=== PATIENT | female | born 1990 | race Caucasian/White ===

== ENCOUNTER 2019-01-21 09:58 | Emergency (ER) | payer OTHER ==
[2019-01-21] MEDS ORDERED: Sodium Chloride 0.9% 1000 ML 1,000 ML IV STA (10:24)
[2019-01-21] MEDS ORDERED: Zofran 4 MG/2 ML VIAL IV ONE (10:24)
--- NOTE | 2019-01-21 10:31 | ERPHSYRPT ---
- History of Present Illness Time Seen by Provider: 01/21/19 10:20 Historian: patient, family (mom) Exam Limitations: no limitations Physician History: Has been referred at least twice for upper GI studies which have not taken place for scheduling reasons. Today had another episode of severe nausea; smoked MJ which in past has helped. Did not this time. Allergies/Adverse Reactions: No Known Drug Allergies Allergy (Verified 01/21/19 10:36) Home Medications: Buprenorphine HCl/Naloxone HCl [Suboxone 8 mg-2 mg Tablet Sl] 1 each SL DAILY [History] Venlafaxine HCl 37.5 mg [Effexor 37.5 mg] 37.5 mg PO DAILY 01/21/19 [ History] Hx Tetanus, Diphtheria Vaccination/Date Given: Yes (up to date) Hx Influenza Vaccination/Date Given: No Hx Pneumococcal Vaccination/Date Given: No - Review of Systems Constitutional: Malaise Respiratory: No Symptoms Cardiac: No Symptoms Abdominal/Gastrointestinal: Nausea, Vomiting, No Diarrhea Genitourinary Symptoms: No Symptoms All Other Systems: Reviewed and Negative - Past Medical History Pertinent Past Medical History: No Neurological History: No Pertinent History ENT History: No Pertinent History Cardiac History: No Pertinent History Respiratory History: No Pertinent History Endocrine Medical History: No Pertinent History Musculoskeletal History: No Pertinent History GI Medical History: No Pertinent History Psycho-Social History: Anxiety, Panic Disorder, Other Female Reproductive Disorders: Other - Past Surgical History Past Surgical History: Yes Gastrointestinal: Cholecystectomy Other Surgical History: IMPLANON-LEFT BICEP - Social History Smoking Status: Light tobacco smoker How long have you smoked: YRS Exposure to second hand smoke: Yes Drug Use: none Patient Lives Alone: No - Nursing Vital Signs Nursing Vital Signs: Initial Vital Signs Temperature 98.1 F 01/21/19 10:13 Pulse Rate 70 01/21/19 10:13 Respiratory Rate 21 01/21/19 10:13 Blood Pressure 140/97 01/21/19 10:13 O2 Sat by Pulse Oximetry 100 01/21/19 10:13 Pain Scale Pain Intensity 0 - Physical Exam General Appearance: moderate distress, alert, anxiety (sewcondry to discomfort and acute episode today) Eye Exam: PERRL/EOMI Ears, Nose, Throat Exam: normal ENT inspection, pharynx normal, moist mucous membranes Neck Exam: normal inspection, supple Respiratory Exam: normal breath sounds, airway intact Cardiovascular Exam: regular rate/rhythm, normal heart sounds, normal peripheral pulses, No edema Gastrointestinal/Abdomen Exam: soft, normal bowel sounds, tenderness (epigastric ) Skin Exam: normal color, warm, dry O2 Delivery: Room Air - Course Nursing assessment & vital signs reviewed: Yes Ordered Tests: Active Orders 24 hr Category Date Time Status ABDOMEN AND PELVIS W/0 CONTRAS [CT] Stat Exams 01/21/19 11:24 Taken AMYLASE Stat Lab 01/21/19 10:36 Completed CBC W DIFF Stat Lab 01/21/19 10:36 Completed CMP Stat Lab 01/21/19 10:36 Completed HCG QUALITATIVE,SERUM Stat Lab 01/21/19 10:36 Completed LIPASE Stat Lab 01/21/19 10:36 Completed Medication Summary Discontinued Medications Generic Name Dose Route Start Last Admin Trade Name Freq PRN Reason Stop Dose Admin Sodium Chloride 1,000 mls @ 999 mls/hr 01/21/19 10:24 01/21/19 12:12 Sodium Chloride 0.9% 1000 Ml IV 01/21/19 11:24 Infused .Q1H1M STA Infusion Sodium Chloride Confirm 01/21/19 10:51 Sodium Chloride 0.9% 1000 Ml Administered 01/21/19 10:52 Dose 1,000 mls @ ud .ROUTE .STK-MED ONE Ondansetron HCl 4 mg 01/21/19 10:24 01/21/19 10:56 Zofran 4 Mg/2 Ml Vial IV 01/21/19 10:25 4 mg STAT ONE Administration Ondansetron HCl Confirm 01/21/19 10:51 Zofran 4 Mg/2 Ml Vial Administered 01/21/19 10:52 Dose 4 mg .ROUTE .STK-MED ONE Ondansetron HCl 4 mg 01/21/19 12:11 01/21/19 12:18 Zofran Odt 4 Mg PO 01/21/19 12:12 4 mg STAT ONE Administration Ondansetron HCl Confirm 01/21/19 12:17 Zofran Odt 4 Mg Administered 01/21/19 12:18 Dose 4 mg .ROUTE .STK-MED ONE Lab/Rad Data: Laboratory Result Diagrams 01/21/19 10:36 01/21/19 10:36 Laboratory Results 01/21/19 01/21/1919 Range/Units 10:36 10:36 10:36 WBC 5.9 (4.0-10.5) K/mm3 RBC 4.08 L (4.1-5.4) M/mm3 Hgb 12.1 (12.0-16.0) gm/dl Hct 36.2 (35-47) % MCV 88.7 (78-100) fl MCH 29.6 (26-32) pg MCHC 33.4 (32-36) g/dl RDW 13.6 (11.5-14.0) % Plt Count 200 (150-450) K/mm3 MPV 11.2 H (6-9.5) fl Gran % 75.8 H (36.0-66.0) % Eos # (Auto) 0.06 (0-0.5) Absolute Lymphs (auto) 1.09 (1.0-4.6) Absolute Monos (auto) 0.27 (0.0-1.3) Lymphocytes % 18.4 L (24.0-44.0) % Monocytes % 4.6 (0.0-12.0) % Eosinophils % 1.0 (0.00-5.0) % Basophils % 0.2 (0.0-0.4) % Absolute Granulocytes 4.50 (1.4-6.9) Basophils # 0.01 (0-0.4) Sodium 139 (137-145) mmol/L Potassium 4.2 (3.5-5.1) mmol/L Chloride 108 H (98-107) mmol/L Carbon Dioxide 20 L (22-30) mmol/L Anion Gap 15.4 H (5-15) MEQ/L BUN 13 (7-17) mg/dL Creatinine 0.59 (0.52-1.04) mg/dL Estimated GFR > 60.0 ML/MIN Glucose 154 H (74-106) mg/dL Calcium 9.2 (8.4-10.2) mg/dL Total Bilirubin 0.40 (0.2-1.3) mg/dL AST 401 H (14-36) U/L ALT 312 H (0-35) U/L Alkaline Phosphatase 85 (38-126) U/L Serum Total Protein 8.4 H (6.3-8.2) g/dL Albumin 4.6 (3.5-5.0) g/dL Amylase 134 H (30-110) U/L Lipase 173 (23-300) U/L Serum , Qual NEGATIVE (Negative) - Progress Progress: improved Progress Note: 01/21/19 16:02 Patient responded to zofran; WBC normal; CT suggestive of possible early appendicitis - not supported by clinical picture. Discussed with Surgeon - will see her on Wednesday. 01/21/19 16:04 [address]iscuss[address] with DrJagdeep: Miguelito (Will see her on Wednesday) - Departure Departure Disposition: Home Clinical Impression: Gastritis Qualifiers: Gastritis type: unspecified gastritis Chronicity: unspecified Gastritis bleeding: without bleeding Qualified Code(s): K29.70 - Gastritis, unspecified, without bleeding Condition: Stable Critical Care Time: No Referrals: WILBERTO SUAREZ MD [Primary Care Provider] - Additional Instructions: Follow up with Dr. Smith/Surgeon on Wednesday. Resume normal activities. Return to ER if fever 101 or above or doubled over in pain meanwhile. Prescriptions: Ondansetron ODT 4 MG [Zofran Odt 4 mg] 4 mg PO Q6H PRN PRN #10 tab.rapdis PRN Reason: Nausea/Vomiting
[2019-01-21 10:43] LABS: BASOPHIL % 0.2 % (0.0-0.4); Basophil (Absolute #) 0.01 (0-0.4); Eosinophil (Absolute #) 0.06 (0-0.5); Granulocytes % 75.8 % (36.0-66.0); Hematocrit 36.2 % (35-47); Hemoglobin 12.1 gm/dl (12.0-16.0); Lymphocyte (Absolute #) 1.09 (1.0-4.6); Lymphocytes % 18.4 % (24.0-44.0); Mean Cell Volume 88.7 fl (78-100); Mean Corpuscular Hgb Concent. 33.4 g/dl (32-36); Mean Platelet Volume 11.2 fl (6-9.5); Monocyte (Absolute #) 0.27 (0.0-1.3); Monocytes % 4.6 % (0.0-12.0); Platelet Count 200 K/mm3 (150-450); Red Blood Count 4.08 M/mm3 (4.1-5.4); Red Cell Distribution Width 13.6 % (11.5-14.0); White Blood Count 5.9 K/mm3 (4.0-10.5)
[2019-01-21 10:46] LABS: Mean Corpuscular Hemoglobin 29.6 pg (26-32)
[2019-01-21 10:50] LABS: ALBUMIN 4.6 g/dL (3.5-5.0); ALKALINE PHOSPHATASE 85 U/L (38-126); AMYLASE 134 U/L (30-110); ANION GAP 15.4 MEQ/L (5-15); BLOOD UREA NITROGEN 13 mg/dL (7-17); CHLORIDE 108 mmol/L (98-107); Calcium 9.2 mg/dL (8.4-10.2); Carbon Dioxide 20 mmol/L (22-30); Creatinine 1 0.59 mg/dL (0.52-1.04); Glucose 154 mg/dL (74-106); LIPASE 173 U/L (23-300); Potassium 4.2 mmol/L (3.5-5.1); SGOT/AST 401 U/L (14-36); SGPT/ALT 312 U/L (0-35); SODIUM 139 mmol/L (137-145); Total Protein 8.4 g/dL (6.3-8.2)
[2019-01-21] MEDS ORDERED: Sodium Chloride 0.9% 1000 ML 1,000 ML ONE (10:51)
[2019-01-21] MEDS ORDERED: Zofran 4 MG/2 ML VIAL ONE (10:51)
[2019-01-21] MEDS ORDERED: ZOFRAN ODT 4 MG PO ONE (12:11)
[2019-01-21] MEDS ORDERED: ZOFRAN ODT 4 MG ONE (12:17)
[2019-01-21 12:53] VITALS: BP 118/77; PULSE 88; O2SAT 97
--- NOTE | 2019-01-21 19:20 | XRAY ---
Indication: Abdomen pain, nausea, and constipation. Multiple contiguous axial images obtained through the abdomen and pelvis without contrast as ordered. Comparison: None Lung bases are clear. Heart is not enlarged. Noncontrasted stomach and bowel loops are nonobstructed. Normal appendix with tiny appendicolith. Little to no colonic fecal debris. 5 mm right lobe hepatic cyst, 3.5 cm right ovary cyst, and previous cholecystectomy. No free fluid/air. Spleen is enlarged measuring 12.7 cm in greatest axial dimension. Remaining liver, pancreas, spleen, adrenal glands, kidneys, ureters, bladder, uterus, and aorta appear unremarkable for noncontrast exam. Osseous structures intact. Impression: 1. 3 cm right ovary cyst. Pelvic sonogram medial further information if clinically warranted. 2. Tiny hepatic cyst and splenomegaly. 3. Remaining CT abdomen/pelvis without contrast exam is negative. Comment: Preliminary interpretation was made by [facility]. No critical discrepancy. CTDI 21.85
== END 2019-01-21 12:53 | disposition home or self-care (01) ==
LOC: ED 09:58
DX: K29.70 Gastritis, unspecified, without bleeding (principal)
CPT/HCPCS: 36415; 74176; 80053; 81025; 82150; 83690; 85025; 96360; 96374; 99284; J2405; Q0162

== ENCOUNTER 2022-02-18 09:09 | Emergency (ER) | payer OTHER ==
--- NOTE | 2022-02-18 09:20 | ERPHSYRPT ---
- History of Present Illness Time Seen by Provider: 02/18/22 09:20 Historian: patient Exam Limitations: no limitations Physician History: This is a 31-year-old white female patient who is approximately 8 weeks and is on Suboxone and presents with nausea vomiting and diarrhea that began yesterday and increased today. Intermittently, over the last 8 weeks she has been having vomiting issues. Her primary care physician, Dr. Suarez, put her on Zofran. However, she has not been able to hold liquids or foods down. She also has not been able to hold the Zofran down. She started having some abdominal pain today but it is improved after the episodes of diarrhea. Patient denies chest pain and she denies shortness of breath. Patient has a history of anxiety and panic attacks. Patient has not had any vaginal bleeding or abnormal vaginal discharge. Timing/Duration: yesterday Abdominal Pain Onset Location: suprapubic Pain Radiation: no radiation (To moderate) Severity of Pain-Max: mild Severity of Pain-Current: none Modifying Factors: Improves With: vomiting Associated Symptoms: nausea, vomiting Previous symptoms: no prior history Allergies/Adverse Reactions: No Known Drug Allergies Allergy (Verified 02/18/22 09:33) Home Medications: Buprenorphine HCl/Naloxone HCl [Suboxone 8 mg-2 mg Tablet Sl] 2 each SL DAILY 01/21/19 [History] Venlafaxine HCl 37.5 mg [Effexor 37.5 mg] 37.5 mg PO DAILY 01/21/19 [History] Lemborexant [Dayvigo] 10 mg PO DAILY 02/18/22 [History] Linaclotide [Linzess] 145 mcg PO DAILY 02/18/22 [History] Naloxegol Oxalate [Movantik] 25 mg PO DAILY 02/18/22 [History] Hx Tetanus, Diphtheria Vaccination/Date Given: Yes (up to date) Hx Influenza Vaccination/Date Given: No Hx Pneumococcal Vaccination/Date Given: No Travel Risk - International Travel Have you traveled outside of the country in past 3 weeks: No - Coronavirus Screening Are you exhibiting any of the following symptoms?: No Close contact with a COVID-19 positive Pt in past 14-21 Days: No - Review of Systems Constitutional: No Symptoms Eyes: No Symptoms Ears, Nose, & Throat: No Symptoms Respiratory: No Symptoms Cardiac: No Symptoms Abdominal/Gastrointestinal: Abdominal Pain, Nausea, Vomiting, Diarrhea, No Constipation Genitourinary Symptoms: No Symptoms Musculoskeletal: No Symptoms Skin: No Symptoms Neurological: No Symptoms Psychological: No Symptoms Endocrine: No Symptoms Hematologic/Lymphatic: No Symptoms Immunological/Allergic: No Symptoms All Other Systems: Reviewed and Negative - Past Medical History Pertinent Past Medical History: No Neurological History: No Pertinent History ENT History: No Pertinent History Cardiac History: No Pertinent History Respiratory History: No Pertinent History Endocrine Medical History: No Pertinent History Musculoskeletal History: No Pertinent History GI Medical History: No Pertinent History Psycho-Social History: Anxiety, Panic Disorder, Other Female Reproductive Disorders: Other - Past Surgical History Past Surgical History: Yes Gastrointestinal: Cholecystectomy Other Surgical History: IMPLANON-LEFT BICEP - Social History Smoking Status: Light tobacco smoker How long have you smoked: YRS Exposure to second hand smoke: Yes Drug Use: none Patient Lives Alone: No - Nursing Vital Signs Nursing Vital Signs: Initial Vital Signs Temperature 96.9 F 02/18/22 09:17 Pulse Rate 64 02/18/22 09:17 Blood Pressure 120/68 02/18/22 09:17 O2 Sat by Pulse Oximetry 100 02/18/22 09:17 Pain Scale Pain Intensity 2 - Physical Exam General Appearance: no apparent distress, alert, anxiety Eye Exam: PERRL/EOMI, eyes nml inspection Ears, Nose, Throat Exam: normal ENT inspection, moist mucous membranes Neck Exam: normal inspection, non-tender, supple, full range of motion Respiratory Exam: normal breath sounds, lungs clear, airway intact, No chest tenderness, No respiratory distress Cardiovascular Exam: regular rate/rhythm, normal heart sounds, normal peripheral pulses Gastrointestinal/Abdomen Exam: soft, normal bowel sounds, No tenderness Pelvic Exam: not done Rectal Exam: not done Back Exam: normal inspection, normal range of motion, No CVA tenderness, No vertebral tenderness Extremity Exam: normal inspection, normal range of motion, pelvis stable Neurologic Exam: alert, oriented x 3, cooperative, marine electrician II-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 nml as tested, normal mood/affect, nml cerebellar function, nml station & gait, sensation nml Skin Exam: normal color, warm, dry Lymphatic Exam: No adenopathy SpO2 Interpretation: normal O2 Delivery: Room Air - Course Nursing assessment & vital signs reviewed: Yes Ordered Tests: Active Orders 24 hr Category Date Time Status IV Insertion STAT Care 02/18/22 09:37 Active AMYLASE Stat Lab 02/18/22 09:55 Received CBC W DIFF Stat Lab 02/18/22 09:55 Completed CMP Stat Lab 02/18/22 09:55 Received HCG, Quantitative (Inhouse) Stat Lab 02/18/22 09:55 Received LIPASE Stat Lab 02/18/22 09:55 Received Lactic Acid Stat Lab 02/18/22 09:55 Completed UA W/RFX CULTURE Stat Lab 02/18/22 09:55 Completed Medication Summary Generic Name Dose Route Start Last Admin Trade Name Freq PRN Reason Stop Dose Admin Sodium Chloride 500 mls @ 500 mls/hr 02/18/22 10:26 Sodium Chloride 0.9% 500 Ml IV 02/18/22 11:25 .Q1H ONE Discontinued Medications Generic Name Dose Route Start Last Admin Trade Name Freq PRN Reason Stop Dose Admin Sodium Chloride 1,000 mls @ 999 mls/hr 02/18/22 09:37 02/18/22 09:41 Sodium Chloride 0.9% 1000 Ml IV 02/18/22 10:37 999 mls/hr .Q1H1M STA Administration Sodium Chloride Confirm 02/18/22 09:41 Sodium Chloride 0.9% 1000 Ml Administered 02/18/22 09:42 Dose 1,000 mls @ ud .ROUTE .STK-MED ONE Ondansetron HCl 4 mg 02/18/22 09:37 02/18/22 09:42 Ondansetron Hcl 4 Mg/2 Ml Vial IV 02/18/22 09:38 4 mg STAT ONE Administration Ondansetron HCl Confirm 02/18/22 09:41 Ondansetron Hcl 4 Mg/2 Ml Vial Administered 02/18/22 09:42 Dose 4 mg .ROUTE .STK-MED ONE Lab/Rad Data: Laboratory Result Diagrams 02/18/22 09:55 Laboratory Results 02/18/22 02/18/22 02/18/22 Range/Units 09:55 09:55 09:55 WBC 7.9 (4.0-10.5) x10^3/uL RBC 4.00 L (4.1-5.4) x10^6/uL Hgb 12.2 (12.0-16.0) g/dL Hct 36.3 (35-47) % MCV 90.8 (78-100) fL MCH 30.5 (26-32) pg MCHC 33.6 (32-36) g/dL RDW 11.7 (11.5-14.0) % Plt Count 166 (150-450) x10^3/uL MPV 11.0 (7.5-11.0) fL Gran % 84.4 H (36.0-66.0) % Immature Gran % (Auto) 0.3 (0.00-0.4) % Nucleat RBC Rel Count 0.0 (0.00-0.1) % Eos # (Auto) 0.05 (0-0.5) x10^3/uL Immature Gran # (Auto) 0.02 (0.00-0.03) x10^3u/L Absolute Lymphs (auto) 0.85 L (1.0-4.6) x10^3/uL Absolute Monos (auto) 0.31 (0.0-1.3) x10^3/uL Absolute Nucleated RBC 0.00 (0.00-0.01) x10^3u/L Lymphocytes % 10.7 L (24.0-44.0) % Monocytes % 3.9 (0.0-12.0) % Eosinophils % 0.6 (0.00-5.0) % Basophils % 0.1 (0.0-0.4) % Absolute Granulocytes 6.68 (1.4-6.9) x10^3/uL Basophils # 0.01 (0-0.4) x10^3/uL Lactic Acid 0.9 (0.4-2.0) Urinalys Dipstick Clnc MAIN LAB Urine Color YELLOW (YELLOW) Urine Appearance CLEAR (CLEAR) Urine pH 7.0 (5-6) Ur Specific [place] 1.020 (1.005-1.025) POC Urine Protein Conf NEGATIVE (Negative) Urine Ketones SMALL-15 (NEGATIVE) Urine Nitrite NEGATIVE (NEGATIVE) Urine Bilirubin NEGATIVE (NEGATIVE) Urine Urobilinogen 1 (0-1) mg/dL Urine Leukocytes NEGATIVE (NEGATIVE) Urine WBC (Auto) 0-2 (0-5) /HPF Urine RBC (Auto) 0-2 (0-2) /HPF U Epithel Cells (Auto) FEW (FEW) /HPF Urine Bacteria (Auto) NONE (NEGATIVE) /HPF Urine RBC TRACE-INTACT (0-5) Berny/ul Urine Mucus (Auto) SLIGHT (NEGATIVE) /HPF Ur Culture Indicated? NO Urine Glucose NEGATIVE (NEGATIVE) mg/dL - Progress Progress: improved, re-examined Progress Note: 02/18/22 10:25 Drink plenty of fluids. Take your medication as prescribed. Call your primary prescribing provider to make arrangements for follow-up appointment for further evaluation and management. Counseled pt/family regarding: lab results, diagnosis, need for follow-up - Departure Departure Disposition: Home Clinical Impression: Vomiting during , Mild dehydration Condition: Stable Critical Care Time: No Referrals: WILBERTO SUAREZ MD [Primary Care Provider] - Follow up/PCP as directed Additional Instructions: Drink plenty of fluids. Take your medication as prescribed. Call your primary provider today to make arrangements for further evaluation and management.
[2022-02-18] MEDS: Sodium Chloride 0.9% 1000 ML 1,000 ML IV STA (09:41)
[2022-02-18] MEDS ORDERED: Sodium Chloride 0.9% 1000 ML 1,000 ML ONE (09:41)
[2022-02-18] MEDS ORDERED: Zofran 4 MG/2 ML VIAL ONE (09:41)
[2022-02-18] MEDS: Zofran 4 MG/2 ML VIAL IV ONE (09:42)
[2022-02-18 09:57] LABS: Absolute Neutrophil Ct (ANC) 6.68 x10^3/uL (1.4-6.9); Basophil (Absolute #) 0.01 x10^3/uL (0-0.4); Eosinophil % 0.6 % (0.00-5.0); Eosinophil (Absolute #) 0.05 x10^3/uL (0-0.5); Hematocrit 36.3 % (35-47); Hemoglobin 12.2 g/dL (12.0-16.0); Lymphocyte (Absolute #) 0.85 x10^3/uL (1.0-4.6); Lymphocytes % 10.7 % (24.0-44.0); Mean Cell Volume 90.8 fL (78-100); Mean Corpuscular Hemoglobin 30.5 pg (26-32); Mean Corpuscular Hgb Concent. 33.6 g/dL (32-36); Monocyte (Absolute #) 0.31 x10^3/uL (0.0-1.3); Monocytes % 3.9 % (0.0-12.0); Neutrophil % 84.4 % (36.0-66.0); Platelet Count 166 x10^3/uL (150-450); Red Cell Distribution Width 11.7 % (11.5-14.0); White Blood Count 7.9 x10^3/uL (4.0-10.5)
[2022-02-18 10:09] LABS: Appearance CLEAR (CLEAR); Bilirubin NEGATIVE (NEGATIVE); Dipstick done @ ? MAIN LAB; Glucose NEGATIVE (NEGATIVE); Ketones SMALL-15 (NEGATIVE); Nitrite NEGATIVE (NEGATIVE); Protein,Urine Dip NEGATIVE (Negative); RBC TRACE-INTACT Ery/ul (0-5); Urobilinogen 1 mg/dL (0-1)
[2022-02-18 10:14] LABS: Epithelial Cells FEW /HPF (FEW); Mucus SLIGHT /HPF (NEGATIVE); RBC 0-2 /HPF (0-2); Urine Cultured Indicated? NO; WBC 0-2 /HPF (0-5)
[2022-02-18] MEDS ORDERED: Sodium Chloride 0.9% 500 ML 500 ML IV ONE (10:59)
[2022-02-18] MEDS: Sodium Chloride 0.9% 500 ML 500 ML IV ONE (11:02)
[2022-02-18 11:04] LABS: ALBUMIN 4.4 g/dL (3.5-5.0); ALKALINE PHOSPHATASE 43 U/L (38-126); AMYLASE 108 U/L (30-110); ANION GAP 10.2 MEQ/L (5-15); BLOOD UREA NITROGEN 9 mg/dL (7-17); CHLORIDE 106 mmol/L (98-107); Calcium 8.5 mg/dL (8.4-10.2); Carbon Dioxide 27 mmol/L (22-30); Creatinine 1 0.48 mg/dL (0.52-1.04); EST GLOMERULAR FILTRATION RATE > 60.0 ML/MIN; Glucose 111 mg/dL (74-106); LIPASE 86 U/L (23-300); SGOT/AST 17 U/L (14-36); SGPT/ALT 10 U/L (0-35); SODIUM 139 mmol/L (137-145); Total Protein 7.3 g/dL (6.3-8.2)
[2022-02-18 11:23] LABS: INFLUENZA A NEGATIVE (NEGATIVE); INFLUENZA B NEGATIVE (NEGATIVE); RESPIRATORY SYNCTIAL VIRUS NEGATIVE (Negative); SARS-CoV-2 Xpert Express NEGATIVE (NEGATIVE)
[2022-02-18 11:38] VITALS: BP 97/58; PULSE 83; O2SAT 98
[2022-02-18 11:43] LABS: HCG, Quantitative (Inhouse) 87781 mIU/ml
== END 2022-02-18 11:40 ==
LOC: ED 09:09
DX: O21.9 Vomiting of pregnancy, unspecified (principal); Z3A.08 8 weeks gestation of pregnancy; E86.0 Dehydration; R19.7 Diarrhea, unspecified; Z72.0 Tobacco use; Z79.891 Long term (current) use of opiate analgesic; Z79.899 Other long term (current) drug therapy
CPT/HCPCS: 0241U; 36415; 80053; 81015; 82150; 83605; 83690; 84702; 85025; 96374; 99283; J2405

== ENCOUNTER 2022-03-08 09:54 | Emergency (ER) | payer OTHER ==
[2022-03-08] MEDS ORDERED: Zofran 4 MG/2 ML VIAL ONE (10:16)
[2022-03-08] MEDS ORDERED: Sodium Chloride 0.9% 1000 ML 1,000 ML ONE (10:17)
[2022-03-08] MEDS ORDERED: Sodium Chloride 0.9% 1000 ML 1,000 ML IV STA (10:20)
[2022-03-08] MEDS ORDERED: Pepcid 20 MG VIAL IV ONE ×2 (10:20→10:29)
--- NOTE | 2022-03-08 10:24 | ERPHSYRPT ---
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 pt is 3 months , has battled nausea/vomiting throughout this . has zofran at home but can not keep it down at this time. pt was in this ED 3-4 weeks ago with same sx and felt significantly better when leaving here and did not have as many issues with vomiting for some time. rates 2/10 upper abd pain r/t vomiting. Physician History: 31 years old 3 para 2 at almost 12 weeks gestation presented in the ER with sudden onset nausea and multiple episodes of nonprojectile, nonbilious vo miting since 4 AM today. Patient is not able to hold anything down. Also reports having cramping with vomiting and no abdominal pain otherwise in between episodes of vomiting. No vaginal bleeding, pelvic cramping or vaginal discharge reported. Denies any urinary symptoms. Feels weak fatigued tired and dehydrated. Timing/Duration: today, intermittent, sudden, worse Activities at Onset: sleep Quality: cramping Abdominal Pain Onset Location: generalized abdomen Pain Radiation: no radiation Severity of Pain-Max: moderate Severity of Pain-Current: none Modifying Factors: Worsens With: vomiting Associated Symptoms: fatigue, nausea, vomiting Previous symptoms: same symptoms as today Allergies/Adverse Reactions: No Known Drug Allergies Allergy (Verified 02/18/22 09:33) Home Medications: Buprenorphine HCl/Naloxone HCl [Suboxone 8 mg-2 mg Tablet Sl] 2 each SL DAILY 01/21/19 [History] Venlafaxine HCl 37.5 mg [Effexor 37.5 mg] 37.5 mg PO DAILY 01/21/19 [History] Lemborexant [Dayvigo] 10 mg PO DAILY 02/18/22 [History] Linaclotide [Linzess] 145 mcg PO DAILY 02/18/22 [History] Naloxegol Oxalate [Movantik] 25 mg PO DAILY 02/18/22 [History] Hx Tetanus, Diphtheria Vaccination/Date Given: Yes (up to date) Hx Influenza Vaccination/Date Given: No Hx Pneumococcal Vaccination/Date Given: No Travel Risk - International Travel Have you traveled outside of the country in past 3 weeks: No - Coronavirus Screening Are you exhibiting any of the following symptoms?: Yes Symptoms: Vomiting/Diarrhea Close contact with a COVID-19 positive Pt in past 14-21 Days: No - Vaccine Status Have you recieved a Covid-19 vaccination: Yes Chief Technician X Ray: Moderna - Vaccination Dates Date of 2cond Vaccination (if applicable): 2020 - Review of Systems Constitutional: Fatigue, Weakness Eyes: No Symptoms Ears, Nose, & Throat: No Symptoms Respiratory: No Symptoms Cardiac: No Symptoms Abdominal/Gastrointestinal: Abdominal Pain, Nausea, Vomiting Genitourinary Symptoms: No Symptoms Musculoskeletal: No Symptoms Skin: No Symptoms Neurological: No Symptoms Psychological: No Symptoms Endocrine: No Symptoms Hematologic/Lymphatic: No Symptoms Immunological/Allergic: No Symptoms - Past Medical History Pertinent Past Medical History: Yes Neurological History: No Pertinent History ENT History: No Pertinent History Cardiac History: No Pertinent History Respiratory History: No Pertinent History Endocrine Medical History: No Pertinent History Musculoskeletal History: No Pertinent History GI Medical History: No Pertinent History History: No Pertinent History Psycho-Social History: Anxiety, Panic Disorder, Other Female Reproductive Disorders: Other - Past Surgical History Past Surgical History: Yes Gastrointestinal: Cholecystectomy Female Surgical History: Section Other Surgical History: IMPLANON-LEFT BICEP. c section x2 - Social History Smoking Status: Light tobacco smoker How long have you smoked: YRS Exposure to second hand smoke: Yes Drug Use: none Patient Lives Alone: No - Female History Hx Now: Yes Expected Date of Delivery: 09/09/22 - Nursing Vital Signs Nursing Vital Signs: Initial Vital Signs Temperature 97.9 F 03/08/22 10:01 Pulse Rate 57 L 03/08/22 10:01 Respiratory Rate 20 03/08/22 10:01 Blood Pressure 117/69 03/08/22 10:01 O2 Sat by Pulse Oximetry 100 03/08/22 10:01 Pain Scale Pain Intensity 2 - Physical Exam General Appearance: no apparent distress, alert Eye Exam: PERRL/EOMI Ears, Nose, Throat Exam: normal ENT inspection Neck Exam: normal inspection Respiratory Exam: normal breath sounds, lungs clear Cardiovascular Exam: regular rate/rhythm, normal heart sounds Gastrointestinal/Abdomen Exam: soft, normal bowel sounds, No tenderness, No guarding Back Exam: normal inspection, normal range of motion Extremity Exam: normal inspection, normal range of motion, pelvis stable Neurologic Exam: alert, oriented x 3, cooperative Skin Exam: normal color SpO2 Interpretation: normal SpO2: 100 O2 Delivery: Room Air Ordered Tests: Active Orders 24 hr Category Date Time Status IV Insertion STAT Care 03/08/22 10:20 Active NPO (ED) STAT Care 03/08/22 10:20 Active CBC W DIFF Stat Lab 03/08/22 10:20 Completed CMP Stat Lab 03/08/22 10:20 Completed LIPASE Stat Lab 03/08/22 10:20 Completed Lactic Acid Stat Lab 03/08/22 10:20 Completed UA W/RFX CULTURE Stat Lab 03/08/22 13:15 Completed Medication Summary Generic Name Dose Route Start Last Admin Trade Name Freq PRN Reason Stop Dose Admin Sodium Chloride 500 mls @ 500 mls/hr 03/08/22 13:00 03/08/22 13:10 Sodium Chloride 0.9% 500 Ml IV 03/08/22 13:59 500 mls/hr .Q1H ONE Administration Discontinued Medications Generic Name Dose Route Start Last Admin Trade Name Freq PRN Reason Stop Dose Admin Famotidine 20 mg 03/08/22 10:20 03/08/22 10:30 Famotidine 20 Mg/1 Vial IV 03/08/22 10:21 20 mg STAT ONE Administration Famotidine Confirm 03/08/22 10:29 Famotidine 20 Mg/1 Vial Administered 03/08/22 10:30 Dose 20 mg IV .STK-MED ONE Sodium Chloride Confirm 03/08/22 10:17 Sodium Chloride 0.9% 1000 Ml Administered 03/08/22 10:18 Dose 1,000 mls @ ud .ROUTE .STK-MED ONE Sodium Chloride 1,000 mls @ 999 mls/hr 03/08/22 10:20 03/08/22 11:49 Sodium Chloride 0.9% 1000 Ml IV 03/08/22 11:20 Infused .Q1H1M STA Infusion Sodium Chloride Confirm 03/08/22 13:09 Sodium Chloride 0.9% 500 Ml Administered 03/08/22 13:10 Dose 500 mls @ ud IV .STK-MED ONE Metoclopramide HCl 10 mg 03/08/22 11:38 03/08/22 11:47 Metoclopramide Hcl 10 Mg/2 Ml Vial IV 03/08/22 11:39 10 mg STAT ONE Administration Metoclopramide HCl Confirm 03/08/22 11:42 Metoclopramide Hcl 10 Mg/2 Ml Vial Administered 03/08/22 11:43 Dose 10 mg .ROUTE .STK-MED ONE Ondansetron HCl Confirm 03/08/22 10:16 Ondansetron Hcl 4 Mg/2 Ml Vial Administered 03/08/22 10:17 Dose 4 mg .ROUTE .STK-MED ONE Ondansetron HCl 4 mg 03/08/22 10:29 03/08/22 10:30 Ondansetron Hcl 4 Mg/2 Ml Vial IV 03/08/22 10:30 4 mg STAT ONE Administration Lab/Rad Data: Laboratory Result Diagrams 03/08/22 10:20 03/08/22 10:20 Laboratory Results 03/08/22 03/08/22 03/08/22 Range/Units 13:15 10:20 10:20 WBC (4.0-10.5) x10^3/uL RBC (4.1-5.4) x10^6/uL Hgb (12.0-16.0) g/dL Hct (35-47) % MCV (78-100) fL MCH (26-32) pg MCHC (32-36) g/dL RDW (11.5-14.0) % Plt Count (150-450) x10^3/uL MPV (7.5-11.0) fL Gran % (36.0-66.0) % Immature Gran % (Auto) (0.00-0.4) % Nucleat RBC Rel Count (0.00-0.1) % Eos # (Auto) (0-0.5) x10^3/uL Immature Gran # (Auto) (0.00-0.03) x10^3u/L Absolute Lymphs (auto) (1.0-4.6) x10^3/uL Absolute Monos (auto) (0.0-1.3) x10^3/uL Absolute Nucleated RBC (0.00-0.01) x10^3u/L Lymphocytes % (24.0-44.0) % Monocytes % (0.0-12.0) % Eosinophils % (0.00-5.0) % Basophils % (0.0-0.4) % Absolute Granulocytes (1.4-6.9) x10^3/uL Basophils # (0-0.4) x10^3/uL Sodium 136 L (137-145) mmol/L Potassium 3.7 (3.5-5.1) mmol/L Chloride 106 (98-107) mmol/L Carbon Dioxide 17 L (22-30) mmol/L Anion Gap 17.0 H (5-15) MEQ/L BUN 7 (7-17) mg/dL Creatinine 0.43 L (0.52-1.04) mg/dL Estimated GFR > 60.0 ML/MIN Glucose 116 H (74-106) mg/dL Lactic Acid 1.9 (0.4-2.0) Calcium 9.0 (8.4-10.2) mg/dL Total Bilirubin 0.60 (0.2-1.3) mg/dL AST 19 (14-36) U/L ALT 13 (0-35) U/L Alkaline Phosphatase 53 (38-126) U/L Serum Total Protein 7.9 (6.3-8.2) g/dL Albumin 4.7 (3.5-5.0) g/dL Lipase 39 (23-300) U/L Urinalys Dipstick Clnc MAIN LAB Urine Color YELLOW (YELLOW) Urine Appearance CLOUDY (CLEAR) Urine pH 8.5 (5-6) Ur Specific [place] 1.020 (1.005-1.025) POC Urine Protein Conf 30 (Negative) Urine Ketones >=160 (NEGATIVE) Urine Nitrite NEGATIVE (NEGATIVE) Urine Bilirubin NEGATIVE (NEGATIVE) Urine Urobilinogen 2 (0-1) mg/dL Urine Leukocytes NEGATIVE (NEGATIVE) Urine WBC (Auto) NONE (0-5) /HPF Urine RBC (Auto) NONE (0-2) /HPF U Epithel Cells (Auto) RARE (FEW) /HPF Urine Bacteria (Auto) NONE (NEGATIVE) /HPF Urine RBC NEGATIVE (0-5) Berny/ul Urine Mucus (Auto) SLIGHT (NEGATIVE) /HPF Ur Culture Indicated? NO Urine Glucose NEGATIVE (NEGATIVE) mg/dL 03/08/22 Range/Units 10:20 WBC 7.3 (4.0-10.5) x10^3/uL RBC 4.06 L (4.1-5.4) x10^6/uL Hgb 12.2 (12.0-16.0) g/dL Hct 36.2 (35-47) % MCV 89.2 (78-100) fL MCH 30.0 (26-32) pg MCHC 33.7 (32-36) g/dL RDW 11.9 (11.5-14.0) % Plt Count 190 (150-450) x10^3/uL MPV 11.6 H (7.5-11.0) fL Gran % 70.1 H (36.0-66.0) % Immature Gran % (Auto) 0.4 (0.00-0.4) % Nucleat RBC Rel Count 0.0 (0.00-0.1) % Eos # (Auto) 0.08 (0-0.5) x10^3/uL Immature Gran # (Auto) 0.03 (0.00-0.03) x10^3u/L Absolute Lymphs (auto) 1.68 (1.0-4.6) x10^3/uL Absolute Monos (auto) 0.38 (0.0-1.3) x10^3/uL Absolute Nucleated RBC 0.00 (0.00-0.01) x10^3u/L Lymphocytes % 22.9 L (24.0-44.0) % Monocytes % 5.2 (0.0-12.0) % Eosinophils % 1.1 (0.00-5.0) % Basophils % 0.3 (0.0-0.4) % Absolute Granulocytes 5.15 (1.4-6.9) x10^3/uL Basophils # 0.02 (0-0.4) x10^3/uL Sodium (137-145) mmol/L Potassium (3.5-5.1) mmol/L Chloride (98-107) mmol/L Carbon Dioxide (22-30) mmol/L Anion Gap (5-15) MEQ/L BUN (7-17) mg/dL Creatinine (0.52-1.04) mg/dL Estimated GFR ML/MIN Glucose (74-106) mg/dL Lactic Acid (0.4-2.0) Calcium (8.4-10.2) mg/dL Total Bilirubin (0.2-1.3) mg/dL AST (14-36) U/L ALT (0-35) U/L Alkaline Phosphatase (38-126) U/L Serum Total Protein (6.3-8.2) g/dL Albumin (3.5-5.0) g/dL Lipase (23-300) U/L Urinalys Dipstick Clnc Urine Color (YELLOW) Urine Appearance (CLEAR) Urine pH (5-6) Ur Specific [place] (1.005-1.025) POC Urine Protein Conf (Negative) Urine Ketones (NEGATIVE) Urine Nitrite (NEGATIVE) Urine Bilirubin (NEGATIVE) Urine Urobilinogen (0-1) mg/dL Urine Leukocytes (NEGATIVE) Urine WBC (Auto) (0-5) /HPF Urine RBC (Auto) (0-2) /HPF U Epithel Cells (Auto) (FEW) /HPF Urine Bacteria (Auto) (NEGATIVE) /HPF Urine RBC (0-5) Berny/ul Urine Mucus (Auto) (NEGATIVE) /HPF Ur Culture Indicated? Urine Glucose (NEGATIVE) mg/dL - Progress Progress: improved, re-examined Progress Note: 03/08/22 13:55 31 years old is evaluated for vomiting with some abdominal cramping. She does not have any peritoneal signs. heart tone in 160s. Given fluids along with Zofran and Reglan, improvement in nausea vomiting. On reevaluation she is resting comfortably, easily arousable and reports feeling better. Work-up grossly unremarkable except for some element of dehydration. Discussed with primary OB Dr. Reynolds, will be discharged on Phenergan to take as needed for nausea vomiting. Discussed with : Haleigh Counseled pt/family regarding: lab results, diagnosis, need for follow-up - Departure Departure Disposition: Home Clinical Impression: Nausea and vomiting during prior to 22 weeks gestation Condition: Stable Critical Care Time: No Referrals: MASSIEL REYNOLDS DO [ACTIVE STAFF] - Follow up/PCP as directed (Call for appointment for reevaluation) WILBERTO SUAREZ MD [Primary Care Provider] - Follow Up with PCP/3 days Instructions: Hyperemesis Gravidarum (DC) Additional Instructions: Drink plenty of fluids to keep yourself well-hydrated. Take Zofran/Phenergan as needed for nausea or vomiting. Follow-up with your OB for reevaluation. Return to ER for pelvic cramping, intractable nausea vomiting, vaginal bleeding discharge etc. Prescriptions: Promethazine HCl 25 mg [Phenergan 25 mg] 25 mg PO Q8H PRN PRN #10 tablet PRN Reason: Vomiting
[2022-03-08] MEDS ORDERED: Zofran 4 MG/2 ML VIAL IV ONE (10:29)
[2022-03-08 10:51] LABS: Absolute Neutrophil Ct (ANC) 5.15 x10^3/uL (1.4-6.9); Basophil (Absolute #) 0.02 x10^3/uL (0-0.4); Eosinophil % 1.1 % (0.00-5.0); Eosinophil (Absolute #) 0.08 x10^3/uL (0-0.5); Hematocrit 36.2 % (35-47); Hemoglobin 12.2 g/dL (12.0-16.0); Lymphocyte (Absolute #) 1.68 x10^3/uL (1.0-4.6); Lymphocytes % 22.9 % (24.0-44.0); Mean Cell Volume 89.2 fL (78-100); Mean Corpuscular Hgb Concent. 33.7 g/dL (32-36); Mean Platelet Volume 11.6 fL (7.5-11.0); Monocyte (Absolute #) 0.38 x10^3/uL (0.0-1.3); Monocytes % 5.2 % (0.0-12.0); Neutrophil % 70.1 % (36.0-66.0); Platelet Count 190 x10^3/uL (150-450); Red Blood Count 4.06 x10^6/uL (4.1-5.4); Red Cell Distribution Width 11.9 % (11.5-14.0); White Blood Count 7.3 x10^3/uL (4.0-10.5)
[2022-03-08 11:03] LABS: ALBUMIN 4.7 g/dL (3.5-5.0); ALKALINE PHOSPHATASE 53 U/L (38-126); BLOOD UREA NITROGEN 7 mg/dL (7-17); CHLORIDE 106 mmol/L (98-107); Carbon Dioxide 17 mmol/L (22-30); Creatinine 1 0.43 mg/dL (0.52-1.04); EST GLOMERULAR FILTRATION RATE > 60.0 ML/MIN; Glucose 116 mg/dL (74-106); LIPASE 39 U/L (23-300); Potassium 3.7 mmol/L (3.5-5.1); SGOT/AST 19 U/L (14-36); SGPT/ALT 13 U/L (0-35); SODIUM 136 mmol/L (137-145); Total Protein 7.9 g/dL (6.3-8.2)
[2022-03-08] MEDS ORDERED: Reglan 10 MG/2 ML IV ONE (11:38)
[2022-03-08] MEDS ORDERED: Reglan 10 MG/2 ML ONE (11:42)
[2022-03-08] MEDS ORDERED: Sodium Chloride 0.9% 500 ML 500 ML IV ONE ×2 (13:00→13:09)
[2022-03-08 13:23] VITALS: BP 108/60; PULSE 61
[2022-03-08 13:27] LABS: Appearance CLOUDY (CLEAR); Bilirubin NEGATIVE (NEGATIVE); Epithelial Cells RARE /HPF (FEW); Glucose NEGATIVE (NEGATIVE); Ketones >=160 (NEGATIVE); Mucus SLIGHT /HPF (NEGATIVE); Nitrite NEGATIVE (NEGATIVE); Ph 8.5 (5-6); Protein,Urine Dip 30 (Negative); RBC NEGATIVE Ery/ul (0-5); Urobilinogen 2 mg/dL (0-1)
[2022-03-08 13:28] LABS: Dipstick done @ ? MAIN LAB; Urine Cultured Indicated? NO
[2022-03-08 13:58] VITALS: O2SAT 100
== END 2022-03-08 14:11 | disposition home or self-care (01) ==
LOC: ED 09:54
DX: O21.9 Vomiting of pregnancy, unspecified (principal); Z3A.12 12 weeks gestation of pregnancy; R10.84 Generalized abdominal pain; Z72.0 Tobacco use; Z79.891 Long term (current) use of opiate analgesic; Z79.899 Other long term (current) drug therapy
CPT/HCPCS: 36000; 36415; 80053; 81015; 83605; 83690; 85025; 96360; 96361; 96374; 96375; 99284; J2405

== ENCOUNTER 2022-04-28 16:17 | Emergency (ER) | payer OTHER ==
[2022-04-28] MEDS ORDERED: Sodium Chloride 0.9% 1000 ML 1,000 ML ONE (17:03)
[2022-04-28] MEDS: Zofran 4 MG/2 ML VIAL IV ONE (17:03)
[2022-04-28] MEDS ORDERED: Zofran 4 MG/2 ML VIAL ONE (17:03)
[2022-04-28] MEDS: Sodium Chloride 0.9% 1000 ML 1,000 ML IV STA (17:03)
[2022-04-28 17:30] VITALS: O2SAT 98
[2022-04-28 18:05] LABS: Absolute Neutrophil Ct (ANC) 10.31 x10^3/uL (1.4-6.9); Basophil (Absolute #) 0.01 x10^3/uL (0-0.4); Eosinophil (Absolute #) 0 x10^3/uL (0-0.5); Hematocrit 30.9 % (35-47); Hemoglobin 10.4 g/dL (12.0-16.0); Lymphocytes % 7.9 % (24.0-44.0); Mean Cell Volume 89.6 fL (78-100); Mean Corpuscular Hemoglobin 30.1 pg (26-32); Mean Corpuscular Hgb Concent. 33.7 g/dL (32-36); Monocyte (Absolute #) 0.12 x10^3/uL (0.0-1.3); Monocytes % 1.1 % (0.0-12.0); Neutrophil % 90.4 % (36.0-66.0); Platelet Count 221 x10^3/uL (150-450); Red Blood Count 3.45 x10^6/uL (4.1-5.4); Red Cell Distribution Width 12.4 % (11.5-14.0); White Blood Count 11.4 x10^3/uL (4.0-10.5)
[2022-04-28 18:38] LABS: ALBUMIN 3.8 g/dL (3.5-5.0); ALKALINE PHOSPHATASE 63 U/L (38-126); ANION GAP 12.7 MEQ/L (5-15); BLOOD UREA NITROGEN 5 mg/dL (7-17); CHLORIDE 105 mmol/L (98-107); Calcium 8.4 mg/dL (8.4-10.2); Carbon Dioxide 20 mmol/L (22-30); Creatinine 1 0.37 mg/dL (0.52-1.04); EST GLOMERULAR FILTRATION RATE > 60.0 ML/MIN; Glucose 98 mg/dL (74-106); Potassium 3.9 mmol/L (3.5-5.1); SGOT/AST 21 U/L (14-36); SGPT/ALT 12 U/L (0-35); SODIUM 133 mmol/L (137-145); Total Protein 7.2 g/dL (6.3-8.2)
[2022-04-28 18:53] LABS: Appearance SLIGHTLY CLOUDY (CLEAR); Bilirubin SMALL (NEGATIVE); Dipstick done @ ? MAIN LAB; Glucose NEGATIVE (NEGATIVE); Ketones LARGE-160 (NEGATIVE); Nitrite NEGATIVE (NEGATIVE); Protein,Urine Dip 100 (Negative); RBC SMALL Ery/ul (0-5); Specific Gravity >=1.030 (1.005-1.025); Urobilinogen 1 mg/dL (0-1)
[2022-04-28 18:55] LABS: Bacteria MODERATE /HPF (NEGATIVE); Epithelial Cells FEW /HPF (FEW); Hyaline Casts 0-2 /LPF (0-2); Mucus MANY /HPF (NEGATIVE)
[2022-04-28 18:57] LABS: Urine Cultured Indicated? YES
[2022-04-28] MEDS ORDERED: Dextrose 5% -0.45 NaCl 1000 ML 1,000 ML IV ONE (19:07)
[2022-04-28] MEDS: Dextrose 5% -0.45 NaCl 1000 ML 1,000 ML IV SCH (19:10)
--- NOTE | 2022-04-28 19:15 | ERPHSYRPT ---
- History of Present Illness Time Seen by Provider: 04/28/22 19:10 Source: patient Exam Limitations: no limitations Patient Subjective Stated Complaint: - 20 weeks N/V Triage Nursing Assessment: Patient ambulated back to ED and transferred self to bed. Patient A+O X 3. Patient's skin pink, warm and dry. Patient states she is 20 weeks and has been having N/V for the past 4 days. Patient denies pain or discomfort. Physician History: Patient is a 31-year-old female presents emergency department for evaluation of nausea vomiting. Patient is 20 weeks . Patient has not been able to tolerate p.o. for the past 4 days. Patient called her [employer] physician who advised patient to come to our ED. Patient states that her last pregnancies were complicated by hyperemesis. She has no other complaints. No chest pain. No abdominal pain. No pain related to her . Symptoms are mild to mo derate in intensity. No specific worsening improving factors. Patient voices no other complaint or concerns at this time. Portions of this note were created with voice recognition technology. There may be grammatical, spelling, punctuation or sound alike errors Timing/Duration: day(s) (4 days) Severity: moderate Modifying Factors: Improves With: nothing Associated Symptoms: denies symptoms Allergies/Adverse Reactions: No Known Drug Allergies Allergy (Verified 04/28/22 16:22) Home Medications: Buprenorphine HCl/Naloxone HCl [Suboxone 8 mg-2 mg Tablet Sl] 2 each SL DAILY 01/21/19 [History] Venlafaxine HCl 37.5 mg [Effexor 37.5 mg] 37.5 mg PO DAILY 01/21/19 [History] Lemborexant [Dayvigo] 10 mg PO DAILY 02/18/22 [History] Linaclotide [Linzess] 145 mcg PO DAILY 02/18/22 [History] Naloxegol Oxalate [Movantik] 25 mg PO DAILY 02/18/22 [History] Hx Tetanus, Diphtheria Vaccination/Date Given: Yes (up to date) Hx Influenza Vaccination/Date Given: No Hx Pneumococcal Vaccination/Date Given: No Immunizations Up to Date: Yes Travel Risk - International Travel Have you traveled outside of the country in past 3 weeks: No - Coronavirus Screening Are you exhibiting any of the following symptoms?: No Close contact with a COVID-19 positive Pt in past 14-21 Days: No - Vaccine Status Have you recieved a Covid-19 vaccination: Yes 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 - Vaccination Dates Date of 2cond Vaccination (if applicable): na - Review of Systems Constitutional: No Symptoms, No Fever, No Chills Eyes: No Symptoms Ears, Nose, & Throat: No Symptoms Respiratory: No Symptoms, No Cough, No Dyspnea Cardiac: No Symptoms, No Chest Pain, No Edema, No Syncope Abdominal/Gastrointestinal: No Symptoms, No Abdominal Pain, No Nausea, No Vomiting, No Diarrhea Genitourinary Symptoms: No Symptoms, No Dysuria Musculoskeletal: No Symptoms, No Back Pain, No Neck Pain Skin: No Symptoms, No Rash Neurological: No Symptoms, No Dizziness, No Focal Weakness, No Sensory Changes Psychological: No Symptoms Endocrine: No Symptoms Hematologic/Lymphatic: No Symptoms Immunological/Allergic: No Symptoms All Other Systems: Reviewed and Negative - Past Medical History Pertinent Past Medical History: Yes Neurological History: No Pertinent History ENT History: No Pertinent History Cardiac History: No Pertinent History Respiratory History: No Pertinent History Endocrine Medical History: No Pertinent History Musculoskeletal History: No Pertinent History GI Medical History: No Pertinent History History: No Pertinent History Psycho-Social History: Anxiety, Panic Disorder, Other Female Reproductive Disorders: Other - Past Surgical History Past Surgical History: Yes Gastrointestinal: Cholecystectomy Female Surgical History: Section Other Surgical History: c section x2 - Social History Smoking Status: Former smoker How long have you smoked: YRS Exposure to second hand smoke: Yes Drug Use: none Patient Lives Alone: No - Female History Hx Last Menstrual Period: end december Hx Now: Yes Expected Date of Delivery: 09/14/22 - Nursing Vital Signs Nursing Vital Signs: Initial Vital Signs Temperature 97.2 F 04/28/22 16:24 Blood Pressure 134/91 04/28/22 16:24 Pain Scale Pain Intensity 0 - Physical Exam General Appearance: no apparent distress, alert Eye Exam: PERRL/EOMI, eyes nml inspection Ears, Nose, Throat Exam: normal ENT inspection, TMs normal, pharynx normal, moist mucous membranes Neck Exam: normal inspection, non-tender, supple, full range of motion Respiratory Exam: normal breath sounds, lungs clear, airway intact, No chest tenderness, No respiratory distress Cardiovascular Exam: regular rate/rhythm, normal heart sounds, normal peripheral pulses Gastrointestinal/Abdomen Exam: soft, normal bowel sounds, No tenderness, No mass Back Exam: normal inspection, normal range of motion, No CVA tenderness, No vertebral tenderness Extremity Exam: normal inspection, normal range of motion, pelvis stable Neurologic Exam: alert, oriented x 3, cooperative, normal mood/affect, nml cerebellar function, nml station & gait, sensation nml, No motor deficits Skin Exam: normal color, warm, dry, No rash Lymphatic Exam: No adenopathy SpO2 Interpretation: normal SpO2: 98 O2 Delivery: Room Air - Course Nursing assessment & vital signs reviewed: Yes Ordered Tests: Active Orders 24 hr Category Date Time Status IV Insertion STAT Care 04/28/22 16:47 Active CBC W DIFF Stat Lab 04/28/22 17:55 Completed CMP Stat Lab 04/28/22 17:55 Completed CULTURE,URINE Stat Lab 04/28/22 16:49 Received UA W/RFX CULTURE Stat Lab 04/28/22 16:49 Completed Medication Summary Generic Name Dose Route Start Last Admin Trade Name Freq PRN Reason Stop Dose Admin Dextrose/Sodium Chloride 1,000 mls @ 100 mls/hr 04/28/22 19:15 04/28/22 19:10 Dextrose 5% -0.45 Nacl 1000 Ml IV 05/28/22 19:14 300 mls/hr .Q10H KASEY Administration Discontinued Medications Generic Name Dose Route Start Last Admin Trade Name Freq PRN Reason Stop Dose Admin Sodium Chloride 1,000 mls @ 999 mls/hr 04/28/22 16:47 04/28/22 18:07 Sodium Chloride 0.9% 1000 Ml IV 04/28/22 17:47 Infused .Q1H1M STA Infusion Sodium Chloride Confirm 04/28/22 17:03 Sodium Chloride 0.9% 1000 Ml Administered 04/28/22 17:04 Dose 1,000 mls @ ud .ROUTE .STK-MED ONE Ondansetron HCl 4 mg 04/28/22 16:47 04/28/22 17:03 Ondansetron Hcl 4 Mg/2 Ml Vial IV 04/28/22 16:48 4 mg STAT ONE Administration Ondansetron HCl Confirm 04/28/22 17:03 Ondansetron Hcl 4 Mg/2 Ml Vial Administered 04/28/22 17:04 Dose 4 mg .ROUTE .STK-MED ONE Lab/Rad Data: Laboratory Result Diagrams 04/28/22 17:55 04/28/22 17:55 Laboratory Results 04/28/22 04/28/22 04/28/22 Range/Units 17:55 17:55 16:49 WBC 11.4 H (4.0-10.5) x10^3/uL RBC 3.45 L (4.1-5.4) x10^6/uL Hgb 10.4 L (12.0-16.0) g/dL Hct 30.9 L (35-47) % MCV 89.6 (78-100) fL MCH 30.1 (26-32) pg MCHC 33.7 (32-36) g/dL RDW 12.4 (11.5-14.0) % Plt Count 221 (150-450) x10^3/uL MPV 11.0 (7.5-11.0) fL Gran % 90.4 H (36.0-66.0) % Immature Gran % (Auto) 0.5 H (0.00-0.4) % Nucleat RBC Rel Count 0.0 (0.00-0.1) % Eos # (Auto) 0 (0-0.5) x10^3/uL Immature Gran # (Auto) 0.06 H (0.00-0.03) x10^3u/L Absolute Lymphs (auto) 0.90 L (1.0-4.6) x10^3/uL Absolute Monos (auto) 0.12 (0.0-1.3) x10^3/uL Absolute Nucleated RBC 0.00 (0.00-0.01) x10^3u/L Lymphocytes % 7.9 L (24.0-44.0) % Monocytes % 1.1 (0.0-12.0) % Eosinophils % 0.0 (0.00-5.0) % Basophils % 0.1 (0.0-0.4) % Absolute Granulocytes 10.31 H (1.4-6.9) x10^3/uL Basophils # 0.01 (0-0.4) x10^3/uL Sodium 133 L (137-145) mmol/L Potassium 3.9 (3.5-5.1) mmol/L Chloride 105 (98-107) mmol/L Carbon Dioxide 20 L (22-30) mmol/L Anion Gap 12.7 (5-15) MEQ/L BUN 5 L (7-17) mg/dL Creatinine 0.37 L (0.52-1.04) mg/dL Estimated GFR > 60.0 ML/MIN Glucose 98 (74-106) mg/dL Calcium 8.4 (8.4-10.2) mg/dL Total Bilirubin 0.50 (0.2-1.3) mg/dL AST 21 (14-36) U/L ALT 12 (0-35) U/L Alkaline Phosphatase 63 (38-126) U/L Serum Total Protein 7.2 (6.3-8.2) g/dL Albumin 3.8 (3.5-5.0) g/dL Urinalys Dipstick Clnc MAIN LAB Urine Color YELLOW (YELLOW) Urine Appearance SLIGHTLY CLOUDY A (CLEAR) Urine pH 6.0 (5-6) Ur Specific [place] >=1.030 A (1.005-1.025) POC Urine Protein Conf 100 A (Negative) Urine Ketones LARGE-160 A (NEGATIVE) Urine Nitrite NEGATIVE (NEGATIVE) Urine Bilirubin SMALL A (NEGATIVE) Urine Urobilinogen 1 A (0-1) mg/dL Urine Leukocytes NEGATIVE (NEGATIVE) Urine WBC (Auto) 3-5 A (0-5) /HPF Urine RBC (Auto) 3-5 A (0-2) /HPF U Hyaline Cast (Auto) 0-2 (0-2) /LPF U Epithel Cells (Auto) FEW (FEW) /HPF Urine Bacteria (Auto) MODERATE A (NEGATIVE) /HPF Urine RBC SMALL A (0-5) Berny/ul Urine Mucus (Auto) MANY A (NEGATIVE) /HPF Ur Culture Indicated? YES Urine Glucose NEGATIVE (NEGATIVE) mg/dL - Progress Progress: improved Progress Note: Patient reassessed. She is well. Vital stable. Patient feels much better. Patient tolerating p.o. Patient received normal saline and dextrose solution as well. Patient requesting discharge at this time. She has a follow-up appointment with her [employer] physician scheduled for tomorrow morning at [address] Reynolds for an update. He agrees with disposition. No indication for further work-up at this time. Portions of this note were created with voice recognition technology. There may be grammatical, spelling, punctuation or sound alike errors 04/28/22 19:56 Patient has no complaint regarding her . No vaginal discharge. No pelvic pain. heart tones 168. 04/28/22 19:57 Proteinuria observed in urinalysis. Bacteria observed in urine however there was at that the ileal cells as well. This may indicate a contaminated catch. No other markers for UTI. Leukocyte negative nitrite negative. Urine culture pending. Patient has no urinary symptomology. No frequency urgency or dysuria. 04/28/22 20:01 Discussed with : Haleigh Will see patient in: office Counseled pt/family regarding: diagnosis, need for follow-up, rad results - Departure Departure Disposition: Home Clinical Impression: Hyperemesis affecting , antepartum, Hyponatremia, Proteinuria, Dehydration Condition: Stable Critical Care Time: No Referrals: WILBERTO SUAREZ MD [Primary Care Provider] - Follow up/PCP as directed Additional Instructions: Discharge/Care Plan TRUNG LEE was seen on 04/28/22 in the Emergency Room. The patient was counseled regarding Diagnosis,Lab results, Imaging studies, need for follow up and when to return to the Emergency Room. Prescriptions given: Discharge Note I have spoken with the patient and/or caregivers. I have explained the patient's condition, diagnosis and treatment plan based on the information available to me at this time. I have answered the patient's and/or caregiver's questions and addressed any concerns. The patient and/or caregivers have as good understanding of the patient's diagnosis, condition and treatment plan as can be expected at this point. The vital signs have been stable. The patient's condition is stable and appropriate for discharge from the emergency department. The patient will pursue further outpatient evaluation with the primary care physician or other designated or consulting physician as outlined in the discharge instructions. The patient and/or caregivers are agreeable to this plan of care and follow-up instructions have been explained in detail. The patient and/or caregivers have received these instruction. The patient/and or caregivers are aware that any significant change in condition or worsening of symptoms should prompt an immediate return to this or the closest emergency department or call 911.
[2022-04-28 20:05] VITALS: BP 130/61; PULSE 65
== END 2022-04-28 20:18 | disposition home or self-care (01) ==
LOC: ED 16:17
DX: O21.1 Hyperemesis gravidarum with metabolic disturbance (principal); Z3A.20 20 weeks gestation of pregnancy; O12.12 Gestational proteinuria, second trimester; E86.0 Dehydration; Z79.899 Other long term (current) drug therapy
CPT/HCPCS: 36000; 36415; 80053; 81015; 85025; 87086; 96360; 96374; 99284; J2405

== ENCOUNTER 2022-08-19 11:48 | Inpatient (IN) | payer OTHER ==
[2022-08-19] MEDS: Celestone Soluspan 6MG/ML IM SCH (15:02)
--- NOTE | 2022-08-19 16:44 | XRAY ---
Indication: heart rate deceleration. Ultrasound biophysical profile exam performed. Comparison: None Single intrauterine with heart rate 137 BPM. Four-quadrant SHAGGY is 14.2 cm, largest pocket 7 cm. 2 points given for breathing, movements, tone, and qualitative amniotic fluid volume. Impression: Total biophysical profile score is 8 out of 8.
[2022-08-19 19:29] LABS: Amphetamine,Urine NEGATIVE (NEGATIVE); Barbiturate,Urine NEGATIVE (NEGATIVE); Benzodiazepine,Urine NEGATIVE (NEGATIVE); Cocaine,Urine NEGATIVE (NEGATIVE); Methadone,Urine NEGATIVE (NEGATIVE); Opiate,Urine NEGATIVE (NEGATIVE); PCP,Urine NEGATIVE (NEGATIVE); THC,Urine POSITIVE (NEGATIVE)
[2022-08-19] MEDS ORDERED: Lactated Ringers 1,000 ML IV ONE (19:30)
[2022-08-19] MEDS ORDERED: TYLENOL EXTRA STRENGTH 500 MG PO PRN (19:34)
[2022-08-19] MEDS: Lactated Ringers 1,000 ML IV SCH ×2 (20:30→21:30)
[2022-08-19] MEDS: Zofran 4 MG/2 ML VIAL IV PRN (22:47)
[2022-08-19 23:03] LABS: Absolute Neutrophil Ct (ANC) 10.48 x10^3/uL (1.4-6.9); BASOPHIL % 0.1 % (0.0-0.4); Basophil (Absolute #) 0.01 x10^3/uL (0-0.4); Eosinophil (Absolute #) 0 x10^3/uL (0-0.5); Hematocrit 34.8 % (35-47); Hemoglobin 11.3 g/dL (12.0-16.0); IMMATURE GRAN # 0.05 x10^3u/L (0.00-0.03); IMMATURE GRAN % 0.4 % (0.00-0.4); Lymphocyte (Absolute #) 0.82 x10^3/uL (1.0-4.6); Lymphocytes % 7.2 % (24.0-44.0); Mean Corpuscular Hemoglobin 30.2 pg (26-32); Mean Corpuscular Hgb Concent. 32.5 g/dL (32-36); Mean Platelet Volume 11.6 fL (7.5-11.0); Monocyte (Absolute #) 0.06 x10^3/uL (0.0-1.3); Monocytes % 0.5 % (0.0-12.0); Neutrophil % 91.8 % (36.0-66.0); Platelet Count 183 x10^3/uL (150-450); Red Blood Count 3.74 x10^6/uL (4.1-5.4); Red Cell Distribution Width 12.4 % (11.5-14.0); White Blood Count 11.4 x10^3/uL (4.0-10.5)
[2022-08-19 23:20] LABS: INR 0.94 (0.8-3.0); PROTIME 10.3 SECONDS (9.4-12.5); PTT 27.6 SECONDS (25.1-36.5)
[2022-08-19 23:54] LABS: ABO TYPING A; Antibody Screen NEGATIVE (NEGATIVE); RH TYPING POSITIVE
[2022-08-20] MEDS: Zofran 4 MG/2 ML VIAL IV PRN (02:50)
[2022-08-20 03:11] LABS: Appearance Clear (Clear); Bacteria None Seen /HPF (None Seen); Bilirubin Negative (Negative); Blood Negative (Negative); Epithelial Cells None Seen /HPF (None Seen); Glucose, Urine Negative (Negative); Hyaline Casts NONE SEEN /LPF (0-2); Ketones 40 (Negative); Leukocyte Esterase Negative (Negative); Nitrite Negative (Negative); Ph 7.5 (4.6-8.0); Protein,Urine Dip Negative (Negative); RBC 0-2 /HPF (0-5); WBC 0-2 /HPF (0-5)
[2022-08-20 03:13] LABS: ADD URINE CULTURE? NO (NO)
[2022-08-20] MEDS ORDERED: Anucort-HC SUPPOSITORY PR PRN (03:37)
[2022-08-20] MEDS ORDERED: Dulcolax 10 MG SUPP PR PRN (03:37)
[2022-08-20] MEDS ORDERED: CORTISONE 1% CREAM TP PRN (03:37)
[2022-08-20] MEDS ORDERED: LANSINOH 40 GM TOP PRN (03:37)
[2022-08-20] MEDS ORDERED: MOTRIN 400 MG PO PRN (03:37)
[2022-08-20] MEDS ORDERED: Mylicon 80MG PO PRN (03:37)
[2022-08-20] MEDS: Lactated Ringers 1,000 ML IV SCH ×2 (06:04→13:40)
--- NOTE | 2022-08-20 08:24 | PCM.HP ---
History of Present Illness - Chief Complaint Chief Complaint: KASEY REPEAT WITH BILATERAL TUBAL LIGATION History of Present Illness: is a 31 year old female. 31 yo iup 36 2/7 wks gestation with hx of csection x 2 was admitted secondary to having nonreasurring heart rate tracing with intermittent variable and late decelerations with known growth restriction at the 8th percentile of growth had been followed by mfm. pt also with current hx of being on buprenorphine 8mg bid for hx of opiate use in the past. discussed pt with mfm dr vivar who advised to give steroids and deliver at this time secondary to her history. Medications & Allergies Home Medications: Home Medication List Buprenorphine HCl/Naloxone HCl [Suboxone 8 mg-2 mg Tablet Sl] 16 mg SL BID 01/21/19 [History Confirmed 08/19/22] Ondansetron ODT 4 MG [Zofran Odt 4 mg] 4 mg PO Q6H PRN PRN #10 tab.rapdis 01/21/19 [Rx Confirmed 08/19/22] Venlafaxine HCl 37.5 mg [Effexor 37.5 mg] 150 mg PO DAILY 01/21/19 [History Confirmed 08/19/22] Linaclotide [Linzess] 145 mcg PO DAILY 02/18/22 [History Confirmed 08/19/22] Naloxegol Oxalate [Movantik] 25 mg PO DAILY 02/18/22 [History Confirmed 08/19/22] Omeprazole 20 mg PO HS 08/19/22 [History Confirmed 08/19/22] Vit No.179/Iron/Folic [ Tablet] 1 each PO DAILY 08/19/22 [History Confirmed 08/19/22] Valacyclovir HCl [Valtrex] 500 mg PO BID 08/20/22 [History Confirmed 08/20/22] Allergies/Adverse Reactions: Allergies Allergy/AdvReac Type Severity Reaction Status Date / Time No Known Drug Allergies Allergy Verified 08/19/22 20:12 - Past Medical History Past Medical History: Yes Neurological History: Migraines ENT History: No Pertinent History Cardiac History: No Pertinent History Respiratory History: No Pertinent History Endocrine Medical History: No Pertinent History Musculoskelatal History: No Pertinent History GI Medical History: Hepatitis, Irritable Bowel History: No Pertinent History Pyscho-Social History: Anxiety, Depression, Panic Disorder, Other Reproductive Disorders: Other Comment: HEP C -POSITIVE HX. PRECANCEROUS CELLS ON CERVIX FROZEN OFF WHEN SHE WAS 16. - Female History Are you now?: Yes Expected Date of Delivery: 09/14/22 - Past Surgical History Past Surgical History: Yes Neuro Surgical History: No Pertinent History Cardiac History: No Pertinent History Respiratory Surgery: No Pertinent History GI Surgical History: Cholecystectomy Genitourinary Surgical Hx: No Pertinent History Musculskeletal Surgical Hx: No Pertinent History Female Surgical History: Section Other Surgical History: [id number] - Social History Smoking Status: Former smoker How long have you smoked: YRS Exposure to second hand smoke: Yes Alcohol: None Drug Use: marijuana - Physical Exam Vital Signs: Vital Signs - 24 hr Temp Pulse Resp BP BP BP Pulse Ox 08/20/22 07:00 90 20 114/66 98 08/20/22 06:30 87 20 114/66 98 08/20/22 06:00 82 20 107/66 99 08/20/22 05:30 65 18 96/55 98 08/20/22 05:00 64 18 116/65 99 08/20/22 04:30 68 18 101/66 99 08/20/22 04:00 97.8 F 71 18 108/60 115/69 97 08/20/22 03:30 71 18 96/53 97 08/20/22 03:00 70 18 124/70 97 08/20/22 02:30 69 18 133/79 97 08/20/22 02:00 97.8 F 66 18 99 08/20/22 01:30 68 18 95 08/20/22 01:00 98.2 F 66 18 96 08/20/22 00:30 62 18 99 08/20/22 00:00 98.2 F 68 20 100 08/19/22 23:30 71 20 118/65 100 08/19/22 23:26 68 18 129/69 100 08/19/22 23:25 68 18 129/69 100 08/19/22 23:00 98.2 F 65 18 100 08/19/22 22:30 68 18 129/69 100 08/19/22 22:00 75 16 100 08/19/22 21:30 98 F 57 L 16 115/69 100 08/19/22 21:00 98.3 F 57 L 16 115/69 115/69 100 08/19/22 20:00 98.2 F 72 17 115/69 97 08/19/22 15:10 85 18 133/89 100 08/19/22 12:15 97.9 F 69 18 117/73 98 Neurologic Exam: oriented x 3 Pelvic Exam: other (exam in office ; closed thick posterior) Skin Exam: normal color Results - Labs Lab/Micro Results: Lab Results-Last 24 Hours 08/19/22 08/19/22 08/19/22 Range/Units 18:23 22:52 22:52 WBC 11.4 H (4.0-10.5) x10^3/uL RBC 3.74 L (4.1-5.4) x10^6/uL Hgb 11.3 L (12.0-16.0) g/dL Hct 34.8 L (35-47) % MCV 93.0 (78-100) fL MCH 30.2 (26-32) pg MCHC 32.5 (32-36) g/dL RDW 12.4 (11.5-14.0) % Plt Count 183 (150-450) x10^3/uL MPV 11.6 H (7.5-11.0) fL Gran % 91.8 H (36.0-66.0) % Immature Gran % (Auto) 0.4 (0.00-0.4) % Nucleat RBC Rel Count 0.0 (0.00-0.1) % Eos # (Auto) 0 (0-0.5) x10^3/uL Immature Gran # (Auto) 0.05 H (0.00-0.03) x10^3u/L Absolute Lymphs (auto) 0.82 L (1.0-4.6) x10^3/uL Absolute Monos (auto) 0.06 (0.0-1.3) x10^3/uL Absolute Nucleated RBC 0.00 (0.00-0.01) x10^3u/L Lymphocytes % 7.2 L (24.0-44.0) % Monocytes % 0.5 (0.0-12.0) % Eosinophils % 0.0 (0.00-5.0) % Basophils % 0.1 (0.0-0.4) % Absolute Granulocytes 10.48 H (1.4-6.9) x10^3/uL Basophils # 0.01 (0-0.4) x10^3/uL PT (9.4-12.5) SECONDS INR (0.8-3.0) APTT (25.1-36.5) SECONDS Urine Color (Yellow) Urine Appearance (Clear) Urine pH (4.6-8.0) Ur Specific [place] (1.005-1.030) Urine Protein (Negative) Urine Glucose (UA) (Negative) mg/dL Urine Ketones (Negative) Urine Blood (Negative) Urine Nitrite (Negative) Urine Bilirubin (Negative) Urine Urobilinogen (0.2) mg/dL Ur Leukocyte Esterase (Negative) U Hyaline Cast (Auto) (0-2) /LPF Urine Microscopic RBC (0-5) /HPF Urine Microscopic WBC (0-5) /HPF Ur Epithelial Cells (None Seen) /HPF Urine Bacteria (None Seen) /HPF Urine Culture Reflexed (NO) Urine Opiates Level NEGATIVE (NEGATIVE) Ur Methadone NEGATIVE (NEGATIVE) Urine Barbiturates NEGATIVE (NEGATIVE) Ur Phencyclidine (PCP) NEGATIVE (NEGATIVE) Urine Amphetamine NEGATIVE (NEGATIVE) U Benzodiazepine Level NEGATIVE (NEGATIVE) Urine Cocaine NEGATIVE (NEGATIVE) Urine Marijuana (THC) POSITIVE (NEGATIVE) ABO Group A Rh Factor POSITIVE Antibody Screen NEGATIVE (NEGATIVE) 08/19/22 08/19/22 Range/Units 22:52 23:23 WBC (4.0-10.5) x10^3/uL RBC (4.1-5.4) x10^6/uL Hgb (12.0-16.0) g/dL Hct (35-47) % MCV (78-100) fL MCH (26-32) pg MCHC (32-36) g/dL RDW (11.5-14.0) % Plt Count (150-450) x10^3/uL MPV (7.5-11.0) fL Gran % (36.0-66.0) % Immature Gran % (Auto) (0.00-0.4) % Nucleat RBC Rel Count (0.00-0.1) % Eos # (Auto) (0-0.5) x10^3/uL Immature Gran # (Auto) (0.00-0.03) x10^3u/L Absolute Lymphs (auto) (1.0-4.6) x10^3/uL Absolute Monos (auto) (0.0-1.3) x10^3/uL Absolute Nucleated RBC (0.00-0.01) x10^3u/L Lymphocytes % (24.0-44.0) % Monocytes % (0.0-12.0) % Eosinophils % (0.00-5.0) % Basophils % (0.0-0.4) % Absolute Granulocytes (1.4-6.9) x10^3/uL Basophils # (0-0.4) x10^3/uL PT 10.3 (9.4-12.5) SECONDS INR 0.94 (0.8-3.0) APTT 27.6 (25.1-36.5) SECONDS Urine Color Yellow (Yellow) Urine Appearance Clear (Clear) Urine pH 7.5 (4.6-8.0) Ur Specific [place] 1.010 (1.005-1.030) Urine Protein Negative (Negative) Urine Glucose (UA) Negative (Negative) mg/dL Urine Ketones 40 A (Negative) Urine Blood Negative (Negative) Urine Nitrite Negative (Negative) Urine Bilirubin Negative (Negative) Urine Urobilinogen 1.0 A (0.2) mg/dL Ur Leukocyte Esterase Negative (Negative) U Hyaline Cast (Auto) NONE SEEN (0-2) /LPF Urine Microscopic RBC 0-2 (0-5) /HPF Urine Microscopic WBC 0-2 (0-5) /HPF Ur Epithelial Cells None Seen (None Seen) /HPF Urine Bacteria None Seen (None Seen) /HPF Urine Culture Reflexed NO (NO) Urine Opiates Level (NEGATIVE) Ur Methadone (NEGATIVE) Urine Barbiturates (NEGATIVE) Ur Phencyclidine (PCP) (NEGATIVE) Urine Amphetamine (NEGATIVE) U Benzodiazepine Level (NEGATIVE) Urine Cocaine (NEGATIVE) Urine Marijuana (THC) (NEGATIVE) ABO Group Rh Factor Antibody Screen (NEGATIVE) - Radiology Impressions Radiology Exams & Impressions: Radiology Procedures Category Date Time Status OB BIOPHYSICAL W/O NON STRESS [US] Stat Exams 08/19/22 13:41 Completed Assessment/Plan (1) growth restriction Current Visit: Yes Status: Acute (2) Non-reassuring electronic monitoring tracing Current Visit: Yes Status: Acute Code(s): O36.8390 - MATERN CARE FOR ABNLT FETL HRT RATE OR RHYM, UNSP TRI, UNSP
--- NOTE | 2022-08-20 08:30 | PCM.NOTE ---
Date and Time: 08/20/22826 Subjective Assessment: pt is 31 yo iup 36 3/7 wks gestation with hx of two previous csection currently admitted for nonreasurring heart rate tracing and severe iugr at 8th percentile growth. pt currently on buprenorphine 8mg bid for hx opiate use. pt had been followed by mfm dr johnson who advised to proceed with giving two doses of steroid and subsequently delivering her given her history and the fact she has had intermittent late and variable decelerations on monitor. a/p iup at 36 3/7 wks gestation with nonreasurring heart rate tracing, severe iugr, hx of opiate use will proceed with delivery today as was discussed with mfm OBJECTIVE DATA Vital Signs: Vital Signs - 24 hr Temp Pulse Resp BP BP BP Pulse Ox 08/20/22 08:00 82 20 112/64 100 08/20/22 07:30 76 20 109/66 100 08/20/22 07:00 90 20 114/66 98 08/20/22 06:30 87 20 114/66 98 08/20/22 06:00 82 20 107/66 99 08/20/22 05:30 65 18 96/55 98 08/20/22 05:00 64 18 116/65 99 08/20/22 04:30 68 18 101/66 99 08/20/22 04:00 97.8 F 71 18 108/60 115/69 97 08/20/22 03:30 71 18 96/53 97 08/20/22 03:00 70 18 124/70 97 08/20/22 02:30 69 18 133/79 97 08/20/22 02:00 97.8 F 66 18 99 08/20/22 01:30 68 18 95 08/20/22 01:00 98.2 F 66 18 96 08/20/22 00:30 62 18 99 08/20/22 00:00 98.2 F 68 20 100 08/19/22 23:30 71 20 118/65 100 08/19/22 23:26 68 18 129/69 100 08/19/22 23:25 68 18 129/69 100 08/19/22 23:00 98.2 F 65 18 100 08/19/22 22:30 68 18 129/69 100 08/19/22 22:00 75 16 100 08/19/22 21:30 98 F 57 L 16 115/69 100 08/19/22 21:00 98.3 F 57 L 16 115/69 115/69 100 08/19/22 20:00 98.2 F 72 17 115/69 97 08/19/22 15:10 85 18 133/89 100 08/19/22 12:15 97.9 F 69 18 117/73 98 Pain Assessment - Last Documented Pain Intensity [Anterior] 0 Pain Intensity 0 Intake and Output: Intake & Output 08/17/22 08/18/22 08/19/22 08/20/22 11:59 11:59 11:59 11:59 Intake Total 4150 Output Total 7 Balance 4143 Weight 73.028 kg Lab Results: Lab Results-Last 24 Hours 08/19/22 08/19/22 08/19/22 Range/Units 18:23 22:52 22:52 WBC 11.4 H (4.0-10.5) x10^3/uL RBC 3.74 L (4.1-5.4) x10^6/uL Hgb 11.3 L (12.0-16.0) g/dL Hct 34.8 L (35-47) % MCV 93.0 (78-100) fL MCH 30.2 (26-32) pg MCHC 32.5 (32-36) g/dL RDW 12.4 (11.5-14.0) % Plt Count 183 (150-450) x10^3/uL MPV 11.6 H (7.5-11.0) fL Gran % 91.8 H (36.0-66.0) % Immature Gran % (Auto) 0.4 (0.00-0.4) % Nucleat RBC Rel Count 0.0 (0.00-0.1) % Eos # (Auto) 0 (0-0.5) x10^3/uL Immature Gran # (Auto) 0.05 H (0.00-0.03) x10^3u/L Absolute Lymphs (auto) 0.82 L (1.0-4.6) x10^3/uL Absolute Monos (auto) 0.06 (0.0-1.3) x10^3/uL Absolute Nucleated RBC 0.00 (0.00-0.01) x10^3u/L Lymphocytes % 7.2 L (24.0-44.0) % Monocytes % 0.5 (0.0-12.0) % Eosinophils % 0.0 (0.00-5.0) % Basophils % 0.1 (0.0-0.4) % Absolute Granulocytes 10.48 H (1.4-6.9) x10^3/uL Basophils # 0.01 (0-0.4) x10^3/uL PT (9.4-12.5) SECONDS INR (0.8-3.0) APTT (25.1-36.5) SECONDS Urine Color (Yellow) Urine Appearance (Clear) Urine pH (4.6-8.0) Ur Specific [place] (1.005-1.030) Urine Protein (Negative) Urine Glucose (UA) (Negative) mg/dL Urine Ketones (Negative) Urine Blood (Negative) Urine Nitrite (Negative) Urine Bilirubin (Negative) Urine Urobilinogen (0.2) mg/dL Ur Leukocyte Esterase (Negative) U Hyaline Cast (Auto) (0-2) /LPF Urine Microscopic RBC (0-5) /HPF Urine Microscopic WBC (0-5) /HPF Ur Epithelial Cells (None Seen) /HPF Urine Bacteria (None Seen) /HPF Urine Culture Reflexed (NO) Urine Opiates Level NEGATIVE (NEGATIVE) Ur Methadone NEGATIVE (NEGATIVE) Urine Barbiturates NEGATIVE (NEGATIVE) Ur Phencyclidine (PCP) NEGATIVE (NEGATIVE) Urine Amphetamine NEGATIVE (NEGATIVE) U Benzodiazepine Level NEGATIVE (NEGATIVE) Urine Cocaine NEGATIVE (NEGATIVE) Urine Marijuana (THC) POSITIVE (NEGATIVE) ABO Group A Rh Factor POSITIVE Antibody Screen NEGATIVE (NEGATIVE) 08/19/22 08/19/22 Range/Units 22:52 23:23 WBC (4.0-10.5) x10^3/uL RBC (4.1-5.4) x10^6/uL Hgb (12.0-16.0) g/dL Hct (35-47) % MCV (78-100) fL MCH (26-32) pg MCHC (32-36) g/dL RDW (11.5-14.0) % Plt Count (150-450) x10^3/uL MPV (7.5-11.0) fL Gran % (36.0-66.0) % Immature Gran % (Auto) (0.00-0.4) % Nucleat RBC Rel Count (0.00-0.1) % Eos # (Auto) (0-0.5) x10^3/uL Immature Gran # (Auto) (0.00-0.03) x10^3u/L Absolute Lymphs (auto) (1.0-4.6) x10^3/uL Absolute Monos (auto) (0.0-1.3) x10^3/uL Absolute Nucleated RBC (0.00-0.01) x10^3u/L Lymphocytes % (24.0-44.0) % Monocytes % (0.0-12.0) % Eosinophils % (0.00-5.0) % Basophils % (0.0-0.4) % Absolute Granulocytes (1.4-6.9) x10^3/uL Basophils # (0-0.4) x10^3/uL PT 10.3 (9.4-12.5) SECONDS INR 0.94 (0.8-3.0) APTT 27.6 (25.1-36.5) SECONDS Urine Color Yellow (Yellow) Urine Appearance Clear (Clear) Urine pH 7.5 (4.6-8.0) Ur Specific [place] 1.010 (1.005-1.030) Urine Protein Negative (Negative) Urine Glucose (UA) Negative (Negative) mg/dL Urine Ketones 40 A (Negative) Urine Blood Negative (Negative) Urine Nitrite Negative (Negative) Urine Bilirubin Negative (Negative) Urine Urobilinogen 1.0 A (0.2) mg/dL Ur Leukocyte Esterase Negative (Negative) U Hyaline Cast (Auto) NONE SEEN (0-2) /LPF Urine Microscopic RBC 0-2 (0-5) /HPF Urine Microscopic WBC 0-2 (0-5) /HPF Ur Epithelial Cells None Seen (None Seen) /HPF Urine Bacteria None Seen (None Seen) /HPF Urine Culture Reflexed NO (NO) Urine Opiates Level (NEGATIVE) Ur Methadone (NEGATIVE) Urine Barbiturates (NEGATIVE) Ur Phencyclidine (PCP) (NEGATIVE) Urine Amphetamine (NEGATIVE) U Benzodiazepine Level (NEGATIVE) Urine Cocaine (NEGATIVE) Urine Marijuana (THC) (NEGATIVE) ABO Group Rh Factor Antibody Screen (NEGATIVE) Radiology Exams: Radiology Procedures Category Date Time Status OB BIOPHYSICAL W/O NON STRESS [US] Stat Exams 08/19/22 13:41 Completed Multi-Disciplinary Progress Notes: Multi-Disciplinary Progress Notes 08/19/22 15:20 Nutrition Note by Jyoti Cordova 1440 r.Wahib at bedside, efm tracing viewed by physician. Initialized on 08/19/22 15:20 - END OF NOTE Assessment/Plan (1) growth restriction Current Visit: Yes Status: Acute (2) Non-reassuring electronic monitoring tracing Current Visit: Yes Status: Acute Code(s): O36.8390 - MATERN CARE FOR ABNLT FETL HRT RATE OR RHYM, UNSP TRI, UNSP
[2022-08-20] MEDS ORDERED: PATIENT OWN MEDICATION SL SCH (10:00)
[2022-08-20] MEDS ORDERED: Pepcid 20 MG VIAL IV SCH (13:00)
[2022-08-20] MEDS ORDERED: SOD CITRATE-CITRIC ACID SOLN PO SCH (13:00)
[2022-08-20] MEDS ORDERED: Lactated Ringers 1,000 ML IV SCH (13:00)
[2022-08-20] MEDS ORDERED: CEFAZOLIN 2 GM-D5W BAG** 2 GM/50 ML ML IV SCH (13:00)
[2022-08-20] MEDS: Celestone Soluspan 6MG/ML IM SCH (13:54)
[2022-08-20] MEDS ORDERED: Ephedrine Sulfate 50 MG/ML ONE (15:34)
[2022-08-20] MEDS ORDERED: Pitocin 10 UNITS/ML ONE ×2 (15:44→15:46)
[2022-08-20] MEDS ORDERED: Decadron 4 MG INJ ONE (15:52)
[2022-08-20] MEDS ORDERED: Dextrose 5%-Lr IV Solution 1000 ML 1,000 ML IV SCH (16:00)
[2022-08-20] MEDS ORDERED: Marcaine 0.5%/Epinephrine 10 ML ONE (16:05)
[2022-08-20] MEDS ORDERED: MARCAINE MPF IV SCH (16:30)
[2022-08-20] MEDS ORDERED: SODIUM CHLORIDE 0.9% IV SCH (16:30)
[2022-08-20 16:52] LABS: Appearance Turbid (Clear); Bacteria None Seen /HPF (None Seen); Bilirubin Negative (Negative); Blood Negative (Negative); Epithelial Cells Few /HPF (None Seen); Glucose, Urine Negative (Negative); Hyaline Casts NONE SEEN /LPF (0-2); Ketones >=160 (Negative); Leukocyte Esterase Trace (Negative); Nitrite Negative (Negative); Protein,Urine Dip 30 (Negative); RBC 0-2 /HPF (0-5); Specific Gravity >=1.030 (1.005-1.030)
[2022-08-20 19:04] VITALS: BP 134/63; PULSE 69; O2SAT 97
[2022-08-20] MEDS ORDERED: Docusate Sodium 100 MG PO SCH (22:00)
--- NOTE | 2022-08-21 08:01 | OP ---
SURGERY DATE/TIME: 08/20/2022 1501 PREOPERATIVE DIAGNOSES: 1) Intrauterine at 36 weeks and 3 days gestation with nonreassuring heart rate tracing with intermittent variable and late deceleration, severe intrauterine growth restriction at eighth percentile of growth, history of opiate use. 2) Multiparity desiring tubal sterilization. POSTOPERATIVE DIAGNOSIS: 1) Intrauterine at 36 weeks and 3 days gestation with nonreassuring heart rate tracing with intermittent variable and late deceleration, severe intrauterine growth restriction at eighth percentile of growth, history of opiate use, with tight nuchal cord x1. 2) Multiparity desiring tubal sterilization. PROCEDURES: 1) Repeat section, low flap transverse uterine incision, Pfannenstiel skin incision. 2) Bilateral tubal sterilization. SURGEON: Jaylen Reynolds D.O. SMOKE AND FLAME SPECIALIST: Kylie Zhou surgical corsetier. ANESTHESIA: Spinal. ESTIMATED BLOOD LOSS: 163 cc. COMPLICATIONS: None. INDICATIONS: The risks, benefits, indications and alternatives of the procedure were reviewed with the patient prior to procedure. The patient understood the risk of infection, bleeding, bowel injury, bladder injury, pelvic infection, possible future and ectopic associated with this procedure and desires to have this surgery as a possible means to alleviate her current medical condition. DESCRIPTION OF PROCEDURE AND FINDINGS: At this point the patient is taken to the operating room where her spinal anesthesia was found to adequate. She was then prepared and draped in normal sterile fashion in the dorsal supine position with a leftward tilt. A Pfannenstiel skin incision is made with a scalpel and carried through to the underlying layer of the fascia with a Bovie. The fascia was then incised in the midline and the incision extended laterally with Mena scissors. The superior aspect of the fascial incision was then grasped King clamps elevated and the underlying rectus muscles dissected off bluntly. Attention is then turned to the inferior aspect of this incision which in similar fashion was grasped, tented up with King clamps and the rectus muscles dissected off bluntly. The rectus muscles were then in the midline and the peritoneum identified, tented up and entered sharply with Metzenbaum scissors. The peritoneal incision was then extended superiorly and inferiorly with good visualization of the bladder. From this point the bladder blade was then inserted and the vesicouterine peritoneum identified, grasped with pickups and entered sharply with Metzenbaum scissors. This incision was then extended laterally and bladder flap created digitally. The bladder blade was then reinserted in the lower uterine segment and excised in transverse fashion with a scalpel. The uterine incision was then extended laterally with bandage scissors. The bladder blade was then removed and the infants head was delivered atraumatically and there was noted a tight nuchal cord which was reduced at the time of delivery. The nose and mouth were suctioned with bulb suction and the cord clamped and cut. The infant was then handed off to the awaiting nurses. The placenta was then removed manually and the uterus exteriorized and cleared of all clots and debris. The uterine incision was repaired with 1-0 chromic in running locked fashion. A second layer of the same suture was used to obtain excellent hemostasis. From this point, a Haim clamp was used to grasp the tube approximately at 4 cm from the cornual region where a 3 cm segment of the tube was then ligated with free tie of plain gut and excised. Good hemostasis was assured. The same procedure was performed on the right tube where the [place] clamp was placed 4 cm from the cornual region and the fallopian tube was then ligated with a 3 cm segment that was excised in similar fashion. From this point the uterus was then returned to the abdomen. The gutters were cleared of all clots and peritoneal muscles were closed in interrupted fashion using 2-0 chromic suture. The fascia was re-approximated with 0 Vicryl in a running fashion and the subcutaneous layer was closed with 3-0 Vicryl suture and the skin was closed with absorbable kandice called INSORB. The patient tolerated the procedure well. Sponge, lap, needle and instrument counts were correct x2. The patient was then taken to the recovery room in stable condition. The patient delivered a live baby boy at 1544.
[2022-08-21] MEDS ORDERED: Adacel Vial IM ONE (09:00)
[2022-08-21] MEDS ORDERED: FERREX 150 PO SCH (10:00)
[2022-08-21 11:26] LABS: HBsAg Screen Negative (Negative)
== END 2022-08-20 20:00 | disposition home or self-care (01) | DRG 785 ==
LOC: OB.NST 11:48 → OB 13:48 → OBSVTOIN 08-20
PROVIDERS: ADMIT Obstetrics & Gynecology; ATTEND Obstetrics & Gynecology
PROC: 10D00Z1 Extraction of Products of Conception, Low, Open Approach (ICD-10-PCS; principal; 2022-08-20)
PROC: 0U570ZZ Destruction of Bilateral Fallopian Tubes, Open Approach (ICD-10-PCS; 2022-08-20)
DX: O36.5930 Maternal care for other known or suspected poor fetal growth, third trimester, not applicable or unspecified (principal); O36.8330 Maternal care for abnormalities of the fetal heart rate or rhythm, third trimester, not applicable or unspecified; Z37.0 Single live birth; Z3A.36 36 weeks gestation of pregnancy; F19.11 Other psychoactive substance abuse, in remission; Z79.899 Other long term (current) drug therapy; Z20.828 Contact with and (suspected) exposure to other viral communicable diseases; Z30.2 Encounter for sterilization
CPT/HCPCS: 36415; 59025; 64488; 71045; 76819; 76937; 80307; 81001; 85025; 85610; 85730; 86850; 86900; 86901; 87086; 87340; 94799; 96372; 99213; G0378; J0690; J0702; J1100; J2405; J2590; A9270-GY